=== PATIENT | male | born 1960 | race Caucasian/White ===

== ENCOUNTER 2017-04-23 09:32 | Emergency (ER) | payer OTHER ==
[~2017-04-23] VITALS: Ht 175.3 cm; Wt 100.7 kg
[2017-04-23 09:36] VITALS: BP 172/87
[2017-04-23] MEDS ORDERED: NORCO 5-325 TA1 EACH PO (10:06)
== END 2017-04-23 10:17 | disposition home or self-care (01) ==
LOC: M.ERS 09:32
DX: S82.831A Other fracture of upper and lower end of right fibula, initial encounter for closed fracture (principal); Z88.0 Allergy status to penicillin; X58.XXXA Exposure to other specified factors, initial encounter; Y93.72 Activity, wrestling; Y92.89 Other specified places as the place of occurrence of the external cause; Y99.8 Other external cause status